=== PATIENT | male | born 2005 ===

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

== ENCOUNTER 2025-11-18 22:15 | Outpatient (REF) | payer MEDICAID, SELFPAY ==
[2025-11-18 22:40] LABS: Potassium 4.4 mmol/L (3.5-5.1)
== END 2025-11-18 22:16 | disposition home or self-care (01) ==
LOC: LBN 22:15
DX: F64.9 Gender identity disorder, unspecified (principal)
CPT/HCPCS: 84403; 82565; 82670; 84132